=== PATIENT | female | born 1980 | race Caucasian/White ===

== ENCOUNTER 2017-07-26 12:20 | Emergency (ER) | payer MEDICAID ==
[2017-07-26] MEDS ORDERED: ACETAMINOPHEN 500 MG TAB PO ONE (13:20)
[2017-07-26] MEDS ORDERED: KETOROLAC TROMETHAMINE INJ 60 MG/2 ML VIAL IM ONE (13:25)
--- NOTE | 2017-07-26 13:30 | ED.PDOC ---
History of Present Illness - General Chief Complaint: Respiratory Problem Stated Complaint: cough Time Seen by Provider: 07/26/17 13:08 Source: patient - History of Present Illness Comments: PT REPORTS COUGH, FEVER, SORE THROAT, CHEST PAIN AND BODYACHES FOR THE PAST 3 DAYS. Cough Quality/Degree: productive cough Improving Factors: nothing Worsening Factors: nothing Associated Symptoms: chest pain/soreness, fever/chills, nasal congestion, sore throat Allergies/Adverse Reactions: Allergies POLY EYE DROPS Allergy (Mild, Uncoded 07/26/17 13:19) Rash RASH AROUND EYES Home Medications: Ambulatory Orders Adderall Xr 10 mg 1 capsule PO DAILY 07/26/17 Benzonatate Perles [Tessalon Perles] 200 mg PO TID PRN #30 cap 07/26/17 Ibuprofen 800 mg PO Q8HR PRN #30 tab 07/26/17 Omeprazole [Prilosec] 20 mg PO BEDTIME 07/26/17 Sertraline HCl 75 mg PO BEDTIME 07/26/17 Review of Systems - Review of Systems Constitutional: States: chills, fever, malaise EENTM: States: ear pain, nose congestion, throat pain Respiratory: States: cough. Denies: short of breath Cardiology: States: chest pain. Denies: palpitations Gastrointestinal/Abdominal: Denies: abdominal pain, nausea, vomiting Genitourinary: Denies: dysuria, frequency Musculoskeletal: Denies: joint pain, joint swelling Skin: Denies: dryness, lesions Past Medical History (General) - Patient Medical History Hx Seizures: No Hx Stroke: No Hx Dementia: No Hx Asthma: No Hx of COPD: No Hx Cardiac Disorders: No Hx Congestive Heart Failure: No Hx Pacemaker: No Hx Hypertension: No Hx Thyroid Disease: No Hx Diabetes: No Hx Gastroesophageal Reflux: Yes - hiatal hernia Hx Renal Disease: No Hx of HIV: No Hx MRSA: No Surgical History: no surgical history - Vaccination History Hx Tetanus, Diphtheria Vaccination: Yes Hx Influenza Vaccination: Yes Hx Pneumococcal Vaccination: No Immunizations Up to Date: Yes - Social History Hx Tobacco Use: No Hx Chewing Tobacco Use: No Hx Alcohol Use: Yes - rarely Hx Substance Use: No Hx Substance Use Treatment: No Hx Depression: No Feels Threatened In Home Enviroment: No Feels Threatened In a Relationship: No Hx Physical Abuse: No Hx Emotional Abuse: No Hx Suspected Abuse: No - Activities of Daily Living Hospice Agency (if applicable):: None - Female History Patient is a Female of Child Bearing Age (10 -59 yrs old): Yes Patient : No Family Medical History - Family History Mother Hx Family Diabetes: Yes - NIDDM Father Hx Family Diabetes: Yes - NIDDM Physical Exam - Physical Exam General Appearance: Alert, Comfortable, No apparent distress, Well Developed, Well Groomed, Well Hydrated ENT Exam: TMs normal, pharyngeal erythema Neck: supple, normal inspection Respiratory: chest non-tender, lungs clear, no respiratory distress, no accessory muscle use, decreased breath sounds Cardiovascular/Chest: regular rate, rhythm, no murmur Gastrointestinal/Abdominal: non tender, soft Neurologic: alert, normal mood/affect, oriented x 3 Skin Exam: normal color, warm/dry Progress - Progress Progress: 07/26/17 15:25 PT REPORTS SIGNIFICANT IMPROVEMENT IN SYMPTOMS AFTER TORADOL IM. LABS AND CXR FINDINGS DISCUSSED. - EKG/XRAY/CT XRAY: chest - NO ACUTE FINDINGS. Departure - Departure Clinical Impression: Influenza Time of Disposition: 15:26 Disposition: Discharge to Home or Self Care Condition: Good Departure Forms: ED Discharge - Pt. Copy, Patient Portal Self Enrollment Instructions: DI for Influenza -- Adult Prescriptions: Ibuprofen 800 mg PO Q8HR PRN #30 tab PRN Reason: Pain Benzonatate Perles [Tessalon Perles] 200 mg PO TID PRN #30 cap PRN Reason: Cough Home Medications: Ambulatory Orders Adderall Xr 10 mg 1 capsule PO DAILY 07/26/17 Benzonatate Perles [Tessalon Perles] 200 mg PO TID PRN #30 cap 07/26/17 Ibuprofen 800 mg PO Q8HR PRN #30 tab 07/26/17 Omeprazole [Prilosec] 20 mg PO BEDTIME 07/26/17 Sertraline HCl 75 mg PO BEDTIME 07/26/17
[2017-07-26] MEDS ORDERED: BENZONATATE PERLES 100 MG CAP PO ONE (15:00)
--- NOTE | 2017-07-26 15:22 | RAD ---
EXAM DESCRIPTION: Chest,2 Views CLINICAL HISTORY: COUGH, FEVER COMPARISON: None FINDINGS: Two-view chest x-ray shows cardiomediastinal silhouette and pulmonary vasculature to be within normal limits. The lungs are normally aerated and clear. Costophrenic angles are sharp. Osseous structures are unremarkable IMPRESSION: No radiographic evidence of acute cardiopulmonary disease. Electronically signed by: Matthew Aquino MD 07/26/2017 3:21 PM [facility]
[2017-07-26 15:37] VITALS: BP 116/58; TEMP 98.6; O2SAT 98
== END 2017-07-26 15:30 | disposition home or self-care (01) ==
LOC: ER 12:20
DX: J11.1 Influenza due to unidentified influenza virus with other respiratory manifestations (principal); K21.9 Gastro-esophageal reflux disease without esophagitis; K44.9 Diaphragmatic hernia without obstruction or gangrene
CPT/HCPCS: 71046; 87070; 87502; 87651; J1885